=== PATIENT | male | born 1945 | race African-American/Black ===

== ENCOUNTER 2016-04-13 00:04 | Emergency (ER) | payer MEDICARE, OTHER ==
[~2016-04-13] VITALS: Ht 177.8 cm; Wt 117.9 kg
[2016-04-13 00:39] VITALS: BP 174/98
[2016-04-13 00:40] VITALS: BP 174/98
--- NOTE | 2016-04-13 02:20 | Emergency Room Report ---
History of Present Illness General Chief Complaint: Male Urogenital Problems Source: Patient Present Illness HPI Patient presents complaining of discomfort with a Goodman catheter is in place and He reports having nephrostomy tubes in place previously Those were removed and the patient had a Goodman catheter placed on Monday He states that he was supposed to have the Goodman catheter removed on Monday However was not able to get up with his urologist Given the burning sensation in the irritation of the catheter he is here requesting removal of the catheter her post been on antibiotics for a bladder infection as well Denies any abdominal pain denies any fevers Patient History Past Medical History: see triage record Pertinent Family History: none Reviewed Nursing Documentation: PMH: Agreed, PSxH: Agreed Nursing Documentation-PMH Hx Cardiac Problems: Yes - ATRIAL FLUTTER Hx Diabetes: Yes Review of Systems All Other Systems: negative except mentioned in HPI Physical Exam Vital Signs Date Time Temp Pulse Resp B/P Pulse Ox O2 Delivery O2 Flow Rate FiO2 04/13/16 00:04 98.1 89 19 174/98 99 Room Air Sp02 EP Interpretation: reviewed, normal General Appearance: well appearing, no apparent distress Head: normocephalic, atraumatic Eyes: bilateral eye EOMI, bilateral eye PERRL ENT: hearing grossly normal, normal pharynx, TMs + canals normal, uvula midline Neck: full range of motion, supple, no meningismus, no bony tend Respiratory: lungs clear, normal breath sounds, no rhonchi, no respiratory distress, no retraction, no accessory muscle use Cardiovascular #1: normal peripheral pulses, regular rate, rhythm, no edema, no gallop, no JVD, no murmur Gastrointestinal: normal bowel sounds, non tender, soft, no mass, no organomegaly, non-distended, no guarding, no hernia, no pulsatile mass, no rebound Genitourinary: no CVA tenderness, other - Goodman catheter in place Musculoskeletal: normal inspection Neurologic: oriented x3, responsive, videotape operator III-XII nml as tested, motor strength/ tone normal, sensory intact Psychiatric: mood/affect normal Skin: normal color, no rash, warm/dry, palpation normal Lymphatic: normal inspection, no adenopathy Medical Decision Making Diagnostic Impression: Primary Impression: goodman catheter discomfort Additional Impression: goodman catheter removal ER Course I had a discussion with the patient regarding the dangers of Goodman catheter removal Including urinary retention and I also recommended Followup tomorrow morning with his urologist as he does have more insight and the patient and need for Goodman catheter However the patient is adamantly requesting removal of the catheter, reports that it is causing too much discomfort he also states that it was supposed to be removed yesterday as well The for the patient was given instructions of possible side effects and we did remove the catheter per the patient request Last Vital Signs Date Time Temp Pulse Resp B/P Pulse Ox O2 Delivery O2 Flow Rate FiO2 04/13/16 00:40 98.1 91 19 174/98 99 Room Air Status: improved Disposition: HOME, SELF-CARE Condition: Improved Referrals: NOT CHOSEN IPA/MD,REFERRING (PCP) Patient Instructions: Goodman Catheter Care, Adult Additional Instructions: Please note that it was discussed that he had the Goodman catheter placed on Monday by your urologist. You are requesting to have the catheter removed. He have mentioned that the catheter was supposed to removed yesterday, but he were unable to see your urologist. He was discussed at this time that removing catheter, can lead to worsening symptoms such as urinary retention. It was recommended that the catheter be evaluated by your urologist, however at this time ER requesting removal and given that request the Goodman catheter has been removed, FARA PENA D.O. Apr 13, 2016 02:20
== END 2016-04-13 00:41 | disposition home or self-care (01) ==
LOC: EDBD 00:04 → EMR 00:27
DX: T83.84XA Pain due to genitourinary prosthetic devices, implants and grafts, initial encounter (principal); Y84.6 Urinary catheterization as the cause of abnormal reaction of the patient, or of later complication, without mention of misadventure at the time of the procedure; Y92.9 Unspecified place or not applicable; Z46.6 Encounter for fitting and adjustment of urinary device; E11.9 Type 2 diabetes mellitus without complications
CPT/HCPCS: 99283